=== PATIENT | female | born 1940 | race Caucasian/White ===

== ENCOUNTER 2022-04-08 14:32 | Inpatient (IN) ==
[2022-04-08 19:59] LABS: Hematocrit 30.4 % (35.3-44.9); Mean Corpuscular HGB Conc 32.9 g/dL (31.6-35.5); Mean Corpuscular Hemoglobin 31.5 pg (28.0-33.3); Mean Corpuscular Volume 95.9 fL (83.0-100.0); Mean Platelet Volume 9.7 fL (9.4-12.4); Platelet Count 160 K/mcL (140-400); Red Blood Count 3.17 M/mcL (3.82-4.97); White Blood Count 6.2 K/mcL (4.3-11.1)
[2022-04-08 20:20] LABS: Calcium 8.5 mg/dL (8.6-10.3)
[2022-04-08 20:47] LABS: Folate > 22.3 ng/mL (3.0-16.0); Vitamin B12 1060 pg/mL (250-1100)
[2022-04-08] MEDS ORDERED: calcium polycarbophiL 625 MG TABLET PO PRN (22:23)
[2022-04-08] MEDS ORDERED: Acetaminophen 325 MG TABLET PO PRN (22:28)
[2022-04-08] MEDS ORDERED: Naloxone 0.4 MG/ML INJ IVP PRN (22:28)
[2022-04-08] MEDS ORDERED: *HR* Heparin 5,000 UNIT/ML VIAL IVP PRN ×2 (22:34)
[2022-04-08] MEDS ORDERED: Morphine Sulfate 2 MG/ML SYRINGE IVP PRN (22:34)
[2022-04-08] MEDS ORDERED: Nitroglycerin 0.4 MG TAB.SUBL SL PRN (22:35)
[2022-04-08] MEDS: Heparin 25,000UNIT/250ML 1/2NS 25,000 UNIT/250 ML IV.SOLN IVC SCH (23:00)
[2022-04-09 02:18] LABS: Hematocrit 28.7 % (35.3-44.9); Hemoglobin 9.6 g/dL (11.5-15.4); Mean Corpuscular HGB Conc 33.4 g/dL (31.6-35.5); Mean Corpuscular Hemoglobin 31.7 pg (28.0-33.3); Mean Corpuscular Volume 94.7 fL (83.0-100.0); Mean Platelet Volume 9.5 fL (9.4-12.4); Platelet Count 147 K/mcL (140-400); Red Blood Count 3.03 M/mcL (3.82-4.97); Red Cell Distribution Width 13.9 % (11.5-14.5); White Blood Count 6.3 K/mcL (4.3-11.1)
[2022-04-09 02:28] LABS: INR 1.1
[2022-04-09 02:30] LABS: Activated Partial Thrombo Time 52.1 Seconds (26.0-36.0)
[2022-04-09 05:14] LABS: Heparin anti-factor XA UFH 0.34 IU/mL (0.30-0.70)
[2022-04-09] MEDS: Levothyroxine 25 MCG TABLET PO SCH (05:39)
[2022-04-09 05:54] LABS: Troponin I 0.07 ng/mL (< 0.04)
[2022-04-09] MEDS ORDERED: polyethylene glycoL 3350 17 GM POWD.PACK PO PRN (08:50)
[2022-04-09] MEDS ORDERED: Fenofibrate 54 MG TABLET PO SCH (09:00)
[2022-04-09] MEDS: Cholecalciferol (D-3) 1,000 UNIT (25MCG) TABLET PO SCH (09:23)
[2022-04-09] MEDS: Aspirin Enteric Coated 81 MG Tablet PO SCH (09:23)
[2022-04-09] MEDS: hydroCHLOROthiazide 25 MG TABLET PO SCH (09:24)
[2022-04-09] MEDS: Folic Acid 1 MG TABLET PO SCH (09:25)
[2022-04-09] MEDS: amLODIPine 5 MG TABLET PO SCH (09:25)
[2022-04-09] MEDS: cilostazoL 100 MG TABLET PO SCH ×2 (09:25→19:57)
[2022-04-09] MEDS: lisinopriL 20 MG TABLET PO SCH (09:30)
[2022-04-09 10:39] LABS: Calcium 8.5 mg/dL (8.6-10.3); Chol/HDL Ratio 4.2 (0-4.9); Magnesium 1.8 mg/dL (1.6-2.6); Potassium 3.9 mEq/L (3.5-5.1)
[2022-04-09] MEDS: Metoprolol XL (24 HR) Succ 25 MG TAB.ER.24H PO SCH (11:10)
[2022-04-09 12:54] LABS: Hematocrit 31.2 % (35.3-44.9); Hemoglobin 10.3 g/dL (11.5-15.4)
[2022-04-10 03:52] LABS: Basophils % 0.4 %; Eosinophils # 0.2 K/mcL (0.0-0.6); Eosinophils % 2.5 %; Hematocrit 31.2 % (35.3-44.9); Hemoglobin 10.4 g/dL (11.5-15.4); Immature Granulocytes % 1.9 % (0-4); Lymphocytes # 1.3 K/mcL (0.6-4.6); Lymphocytes % 18.4 %; Mean Corpuscular HGB Conc 33.3 g/dL (31.6-35.5); Mean Corpuscular Hemoglobin 31.2 pg (28.0-33.3); Mean Corpuscular Volume 93.7 fL (83.0-100.0); Mean Platelet Volume 9.8 fL (9.4-12.4); Monocytes # 0.7 K/mcL (0.0-1.3); Monocytes % 9.5 %; Neutrophils # 4.6 K/mcL (1.6-8.9); Platelet Count 169 K/mcL (140-400); Red Blood Count 3.33 M/mcL (3.82-4.97); Red Cell Distribution Width 13.9 % (11.5-14.5); Segmented Neutrophils % 67.3 %; White Blood Count 6.8 K/mcL (4.3-11.1)
[2022-04-10 04:07] LABS: Calcium 9.2 mg/dL (8.6-10.3); Magnesium 1.8 mg/dL (1.6-2.6)
[2022-04-10] MEDS: Heparin 25,000UNIT/250ML 1/2NS 25,000 UNIT/250 ML IV.SOLN IVC SCH (04:29)
[2022-04-10] MEDS: Levothyroxine 25 MCG TABLET PO SCH (05:26)
[2022-04-10] MEDS ORDERED: Regadenoson 0.4 MG/5 ML SYRINGE IVP ONE (06:14)
[2022-04-10] MEDS: amLODIPine 5 MG TABLET PO SCH (10:56)
[2022-04-10] MEDS: cilostazoL 100 MG TABLET PO SCH ×2 (10:56→21:16)
[2022-04-10] MEDS: Aspirin Enteric Coated 81 MG Tablet PO SCH (10:57)
[2022-04-10] MEDS: Cholecalciferol (D-3) 1,000 UNIT (25MCG) TABLET PO SCH (10:57)
[2022-04-10] MEDS: Metoprolol XL (24 HR) Succ 25 MG TAB.ER.24H PO SCH (10:57)
[2022-04-10] MEDS: lisinopriL 20 MG TABLET PO SCH (10:57)
[2022-04-10] MEDS: Furosemide 40 MG/4 ML VIAL IVP SCH ×2 (10:57→17:19)
[2022-04-10] MEDS: Folic Acid 1 MG TABLET PO SCH (10:57)
[2022-04-10] MEDS: hydroCHLOROthiazide 25 MG TABLET PO SCH (10:57)
[2022-04-11 04:02] LABS: Basophils % 0.3 %; Eosinophils # 0.1 K/mcL (0.0-0.6); Eosinophils % 1.5 %; Hemoglobin 10.1 g/dL (11.5-15.4); Immature Granulocytes % 1.3 % (0-4); Lymphocytes # 1.3 K/mcL (0.6-4.6); Lymphocytes % 15.1 %; Mean Corpuscular HGB Conc 33.7 g/dL (31.6-35.5); Mean Corpuscular Hemoglobin 31.3 pg (28.0-33.3); Mean Corpuscular Volume 92.9 fL (83.0-100.0); Monocytes % 10.8 %; Neutrophils # 6.3 K/mcL (1.6-8.9); Nucleated Red Blood Cells 0.2 /100 WBC (0); Platelet Count 179 K/mcL (140-400); Red Blood Count 3.23 M/mcL (3.82-4.97); Red Cell Distribution Width 13.9 % (11.5-14.5); White Blood Count 8.8 K/mcL (4.3-11.1)
[2022-04-11 04:19] LABS: Calcium 9.3 mg/dL (8.6-10.3); Magnesium 1.7 mg/dL (1.6-2.6)
[2022-04-11] MEDS: Levothyroxine 25 MCG TABLET PO SCH (05:00)
[2022-04-11] MEDS: lisinopriL 20 MG TABLET PO SCH (09:05)
[2022-04-11] MEDS: hydroCHLOROthiazide 25 MG TABLET PO SCH (09:05)
[2022-04-11] MEDS: Metoprolol XL (24 HR) Succ 25 MG TAB.ER.24H PO SCH (09:12)
[2022-04-11] MEDS: Aspirin Enteric Coated 81 MG Tablet PO SCH (09:12)
[2022-04-11] MEDS: cilostazoL 100 MG TABLET PO SCH ×2 (09:12→21:25)
[2022-04-11] MEDS: Folic Acid 1 MG TABLET PO SCH (09:12)
[2022-04-11] MEDS: amLODIPine 5 MG TABLET PO SCH (09:12)
[2022-04-11] MEDS: Cholecalciferol (D-3) 1,000 UNIT (25MCG) TABLET PO SCH (09:12)
[2022-04-11] MEDS: *HR* Heparin 5,000 UNIT/ML VIAL SQ SCH ×2 (14:23→21:26)
[2022-04-12 02:57] LABS: Calcium 9.6 mg/dL (8.6-10.3); Magnesium 1.7 mg/dL (1.6-2.6); Potassium 3.8 mEq/L (3.5-5.1)
[2022-04-12 02:59] LABS: Basophils % 0.5 %; Eosinophils # 0.2 K/mcL (0.0-0.6); Eosinophils % 2.3 %; Hematocrit 29.3 % (35.3-44.9); Hemoglobin 9.7 g/dL (11.5-15.4); Immature Granulocytes % 1.9 % (0-4); Lymphocytes # 1.4 K/mcL (0.6-4.6); Lymphocytes % 19.1 %; Mean Corpuscular HGB Conc 33.1 g/dL (31.6-35.5); Mean Corpuscular Hemoglobin 31.3 pg (28.0-33.3); Mean Corpuscular Volume 94.5 fL (83.0-100.0); Mean Platelet Volume 9.8 fL (9.4-12.4); Monocytes # 0.8 K/mcL (0.0-1.3); Monocytes % 10.8 %; Neutrophils # 4.9 K/mcL (1.6-8.9); Platelet Count 160 K/mcL (140-400); Segmented Neutrophils % 65.4 %; White Blood Count 7.5 K/mcL (4.3-11.1)
[2022-04-12] MEDS: Levothyroxine 25 MCG TABLET PO SCH (06:20)
[2022-04-12] MEDS: *HR* Heparin 5,000 UNIT/ML VIAL SQ SCH (06:20)
[2022-04-12] MEDS: amLODIPine 5 MG TABLET PO SCH (10:04)
[2022-04-12] MEDS: Folic Acid 1 MG TABLET PO SCH (10:04)
[2022-04-12] MEDS: cilostazoL 100 MG TABLET PO SCH (10:04)
[2022-04-12] MEDS: Aspirin Enteric Coated 81 MG Tablet PO SCH (10:04)
[2022-04-12] MEDS: Cholecalciferol (D-3) 1,000 UNIT (25MCG) TABLET PO SCH (10:04)
[2022-04-12] MEDS: Metoprolol XL (24 HR) Succ 25 MG TAB.ER.24H PO SCH (10:04)
[2022-04-12 10:59] VITALS: BP 120/74; PULSE 87; TEMP 98.2; O2SAT 95
== END 2022-04-12 13:14 | disposition home or self-care (01) | DRG 281 ==
LOC: 2ANU → SUATTDRO 19:12
PROVIDERS: ADMIT Internal Medicine; ATTEND Pharmacist

== ENCOUNTER 2022-04-20 17:59 | Observation (INO) ==
[2022-04-20] MEDS ORDERED: *HR* Heparin 5,000 UNIT/ML VIAL IVP PRN ×2 (21:00)
[2022-04-20] MEDS ORDERED: *HR* Heparin 5,000 UNIT/ML VIAL IVP ONE (21:00)
[2022-04-20] MEDS ORDERED: Ondansetron ODT 4 MG TAB.RAPDIS SL PRN (21:01)
[2022-04-20] MEDS ORDERED: Naloxone 0.4 MG/ML INJ IVP PRN (21:01)
[2022-04-20] MEDS ORDERED: Melatonin 3 MG TABLET PO PRN (21:01)
[2022-04-20] MEDS ORDERED: Ringers Solution, Lactated 1,000 ML IVC SCH (21:15)
[2022-04-20 22:25] LABS: Hemoglobin 9.9 g/dL (11.5-15.4); Mean Corpuscular HGB Conc 34.1 g/dL (31.6-35.5); Mean Corpuscular Hemoglobin 31.8 pg (28.0-33.3); Mean Corpuscular Volume 93.2 fL (83.0-100.0); Mean Platelet Volume 9.4 fL (9.4-12.4); Platelet Count 185 K/mcL (140-400); Red Blood Count 3.11 M/mcL (3.82-4.97); Red Cell Distribution Width 13.6 % (11.5-14.5); White Blood Count 8.1 K/mcL (4.3-11.1)
[2022-04-20] MEDS: Heparin 25,000UNIT/250ML 1/2NS 25,000 UNIT/250 ML IV.SOLN IVC SCH (22:27)
[2022-04-20 22:49] LABS: INR 1.1
[2022-04-20 22:51] LABS: Heparin anti-factor XA UFH 1.41 IU/mL (0.30-0.70)
[2022-04-21 01:02] LABS: Influenza A PCR Negative (Negative); Influenza B PCR Negative (Negative); Resp. Syncytial Virus PCR Negative (Negative); SARS-CoV-2 by PCR (In House) Negative (Negative)
[2022-04-21] MEDS: Levothyroxine 25 MCG TABLET PO SCH (05:22)
[2022-04-21 07:18] LABS: Calcium 8.5 mg/dL (8.6-10.3); Magnesium 1.8 mg/dL (1.6-2.6); Phosphorous 2.9 mg/dL (2.7-4.5); Potassium 3.8 mEq/L (3.5-5.1)
[2022-04-21 07:23] LABS: Hematocrit 29.2 % (35.3-44.9); Mean Corpuscular HGB Conc 34.2 g/dL (31.6-35.5); Mean Corpuscular Hemoglobin 31.7 pg (28.0-33.3); Mean Corpuscular Volume 92.7 fL (83.0-100.0); Mean Platelet Volume 9.2 fL (9.4-12.4); Platelet Count 188 K/mcL (140-400); Red Blood Count 3.15 M/mcL (3.82-4.97); Red Cell Distribution Width 13.5 % (11.5-14.5); White Blood Count 8.5 K/mcL (4.3-11.1)
[2022-04-21 07:32] LABS: Heparin anti-factor XA UFH 0.41 IU/mL (0.30-0.70)
[2022-04-21 07:33] LABS: Prothrombin Time 11.5 Seconds (9.4-12.1)
[2022-04-21] MEDS: cilostazoL 100 MG TABLET PO SCH ×2 (08:30→20:36)
[2022-04-21] MEDS: Aspirin Enteric Coated 81 MG Tablet PO SCH (08:30)
[2022-04-21] MEDS: amLODIPine 5 MG TABLET PO SCH (08:30)
[2022-04-21] MEDS: Metoprolol XL (24 HR) Succ 25 MG TAB.ER.24H PO SCH (08:30)
[2022-04-21] MEDS: Heparin 25,000UNIT/250ML 1/2NS 25,000 UNIT/250 ML IV.SOLN IVC SCH (20:38)
[2022-04-21] MEDS ORDERED: Acetaminophen 325 MG TABLET PO ONE (20:54)
[2022-04-22] MEDS: Levothyroxine 25 MCG TABLET PO SCH (05:54)
[2022-04-22] MEDS: Aspirin Enteric Coated 81 MG Tablet PO SCH (10:16)
[2022-04-22] MEDS: cilostazoL 100 MG TABLET PO SCH (10:16)
[2022-04-22] MEDS: amLODIPine 5 MG TABLET PO SCH (10:16)
[2022-04-22] MEDS: Metoprolol XL (24 HR) Succ 25 MG TAB.ER.24H PO SCH (10:16)
[2022-04-22 10:37] VITALS: BP 142/67; PULSE 85; TEMP 98; O2SAT 96
[2022-04-22] MEDS ORDERED: Apixaban 5 MG TABLET PO SCH (10:45)
== END 2022-04-22 12:50 | disposition home or self-care (01) ==
LOC: 3BNU → SUATTDRO 20:20
PROVIDERS: ADMIT Pharmacist; ATTEND Internal Medicine